=== PATIENT | male | born 2000 | race Caucasian/White ===

== ENCOUNTER 2020-06-17 01:41 | Emergency (ER) | payer BC, OTHER ==
[2020-06-17 04:01] LABS: HEMOGLOBIN 15.7 gm/dl (14.0-17.5); RED BLOOD COUNT 5.19 M/UL (4.20-5.50); WHITE BLOOD COUNT 7.9 K/UL (4.5-11.0)
[2020-06-17 04:21] LABS: BUN/CREATININE RATIO 14 (0-10)
[2020-06-17] MEDS ORDERED: IBUPROFEN600 MG PO (05:15)
== END 2020-06-17 05:30 | disposition home or self-care (01) ==
LOC: ER1 01:41
PROVIDERS: Internal Medicine
DX: R10.84 Generalized abdominal pain (principal); R10.32 Left lower quadrant pain
CPT/HCPCS: 80053; 81001; 85025; 96374; 96375; 99284; J1885; J2405; Q9967

== ENCOUNTER 2021-07-10 14:52 | Emergency (ER) | payer SELFPAY ==
[~2021-07-10 14:52] MED LIST: IBUPROFEN600 MG PO
== END 2021-07-10 17:07 | disposition home or self-care (01) ==
LOC: ER1 14:52
DX: S01.01XA Laceration without foreign body of scalp, initial encounter (principal); W31.2XXA Contact with powered woodworking and forming machines, initial encounter
CPT/HCPCS: 12002; 99282